=== PATIENT | male | born 2005 | race Two or more races ===

== ENCOUNTER 2025-02-10 21:26 | Emergency (ER) | payer OTHER ==
[~2025-02-10] VITALS: Ht 162.6 cm; Wt 59.1 kg
[2025-02-10] MEDS: ACETAMINOPHEN 500 MG TABLET PO ONE (23:26)
[2025-02-10] MEDS: IBUPROFEN 400 MG TABLET PO ONE (23:26)
[2025-02-10 23:30] VITALS: BP 124/65; PULSE 88; RESP 16; TEMP 97.9; O2SAT 99
== END 2025-02-11 01:56 | disposition home or self-care (01) ==
LOC: EMS 21:26
DX: S30.0XXA Contusion of lower back and pelvis, initial encounter (principal); Y04.0XXA Assault by unarmed brawl or fight, initial encounter; Y93.89 Activity, other specified; Y92.89 Other specified places as the place of occurrence of the external cause; Y99.8 Other external cause status
CPT/HCPCS: 99283